=== PATIENT | male | born 1960 | race Hispanic/Latino ===

== ENCOUNTER 2020-04-05 22:08 | Observation (INO) | payer MEDICARE, OTHER ==
[2020-04-05] MEDS ORDERED: Sodium Chloride 0.9% 1,000 ML IV ONE (22:37)
[2020-04-05] MEDS ORDERED: Sodium Chloride 0.9% 10 ML Syringe FLUSH PRN (22:37)
[2020-04-05] MEDS ORDERED: Sodium Chloride 0.9% 2.5 ML Syringe FLUSH PRN (22:37)
[2020-04-05] MEDS ORDERED: Morphine 4 MG/ML Syringe IVPUSH ONE (23:01)
[2020-04-05] MEDS ORDERED: HYDROmorphone 1 MG/ML Syringe IVPUSH ONE (23:11)
--- NOTE | 2020-04-05 23:17 | EDM.PDOC ---
ED HPI GENERAL MEDICAL PROBLEM - General Chief Complaint: Abdominal Pain Stated Complaint: STOMACHE PAIN Time Seen by Provider: 04/05/20 22:28 Source of Information: Reports: Patient - History of Present Illness INITIAL COMMENTS - FREE TEXT/NARRATIVE: History of present illness: 59-year-old male presenting with right-sided abdominal pain, ongoing since yesterday. Somewhat chronic nature to this pain but worsened in the last couple days. The patient does have significant previous/underlying medical abdominal issues including liver cirrhosis for which he is scheduled tomorrow to have some kind of a liver stent done at [facility], as well as colon cancer post colectomy with colostomy in place. He does report that over the last few weeks he has had an increase in abdominal girth and distention and he has seen his doctors at [place] and they told him it was not anything to be concerned about. He has never had paracentesis or any other abdominal drainage. He reports normal stool output from the ostomy but does have some intestine herniation through the ostomy. Review of systems: As per history of present illness and below otherwise all systems reviewed and negative. Past medical history: As per history of present illness and as reviewed below otherwise noncontributory. Diabetes, liver cirrhosis, colon cancer Surgical history: As per history of present illness and as reviewed below otherwise noncontributory. Colostomy, liver stent Social history: Occasional-smoker Family history: As per history of present illness and as reviewed below otherwise noncontributory. Physical exam: GEN: no acute distress, well appearing HEENT: Atraumatic, normocephalic, mucous membranes moist, Neck: supple. Lungs: No respiratory distress. Heart: RRR Abdomen: Soft, distended, colostomy present in right mid abdomen that has herniated intestinal tissue at the opening, easily reduced. No fluid wave or ascites palpable. Tenderness is located primarily around the ostomy site and right abdominal wall. No rigidity Back: nontender Extremities: Atraumatic. Neurovascularly intact. Neuro: Awake, alert, oriented. Appears slightly slow to answer questions, however patient reports that he is hard of hearing and is having difficulty hearing. He is ANO x3. Neuro Exam nonfocal. Skin: warm, dry, no lesions Psych: Normal mood and affect Diagnostics: Labs, CT Therapeutics: Zosyn, lactulose, Dilaudid MDM: Impression: Plan: Definitive disposition and diagnosis as appropriate pending reevaluation and review of above. Abdomen Pain Score (Numeric/FACES): 7 - Related Data Allergies Allergy/AdvReac Type Severity Reaction Status Date / Time No Known Allergies Allergy Verified 04/05/20 22:24 Home Meds: Home Meds . [No Known Home Meds] 04/05/20 [History] Past Medical History HEENT History: Reports: None Cardiovascular History: Reports: None Respiratory History: Reports: None Gastrointestinal History: Reports: Cirrhosis Genitourinary History: Reports: None Musculoskeletal History: Reports: None Neurological History: Reports: None Psychiatric History: Reports: Anxiety, Depression Endocrine/Metabolic History: Reports: Diabetes, Type II, Other (See Below) Other Endocrine/Metabolic History: Thyroid Problem Insulin Pump Model and Air Conditioning Coil Assembler: None Hematologic History: Reports: None Immunologic History: Reports: None Oncologic (Cancer) History: Reports: Colon Dermatologic History: Reports: None - Infectious Disease History Infectious Disease History: Reports: None - Past Surgical History Head Surgeries/Procedures: Reports: None GI Surgical History: Reports: Colostomy, Other (See Below) Other GI Surgeries/Procedures: Abdominal Surgery Male Surgical History: Reports: None Musculoskeletal Surgical History: Reports: None Social & Family History - Family History Family Medical History: Noncontributory - Tobacco Use Smoking Status *Q: Current Some Day Smoker Years of Tobacco use: 40 Packs/Tins Daily: 0.1 - Caffeine Use Caffeine Use: Reports: Coffee, Soda - Recreational Drug Use Recreational Drug Use: No ED ROS GENERAL - Review of Systems Review Of Systems: See Below (See HPI) ED EXAM, GI/ABD - Physical Exam Exam: See Below (See HPI) Course - Vital Signs Text/Narrative:: Abdominal pain, history of liver disease/cirrhosis and colon cancer. Tender to palpation primarily about the colostomy which does have herniation of intestinal contents though no strangulated hernia, easily reducible. Will check CT abdomen. Will also check ammonia. Ammonia level is elevated. Patient's CT scan shows ascites, thickening of the cecum and right colon, this is the location of the patient's pain. Suspect colitis. Abnormal portal vein, possible thrombosis versus chronic. Creatinine slightly elevated. LFTs slightly elevated. Patient given lactulose, pain control and Zosyn here. Symptoms are improved. Discussed recommendation with patient for admission. We did attempt to discuss this with the corporate attorney [place] for potential transfer, as the patient had procedure planned to there tomorrow and all of his specialists are located there, however they are full and on diversion and cannot accept transfers at this time. Therefore the patient will be admitted here and stabilized and will be able to follow-up with his surgeon there once stable for discharge. Last Recorded V/S: Last Vital Signs Temp 97.4 F 04/06/20 00:45 Pulse 59 L 04/06/20 02:30 Resp 18 04/06/20 02:30 BP 130/88 04/06/20 02:30 Pulse Ox 99 04/06/20 02:30 - Orders/Labs/Meds Orders: Active Orders 24 hr Category Date Time Status Patient Status [ADT] Routine ADT 04/06/20 02:13 Active Sodium Chloride 0.9% [Saline Flush] Med 04/05/20 22:37 Active 10 ml FLUSH ASDIRECTED PRN Sodium Chloride 0.9% [Saline Flush] Med 04/05/20 22:37 Active 2.5 ml FLUSH ASDIRECTED PRN Saline Lock Insert [OM.PC] Stat Oth 04/05/20 22:37 Ordered Medication Orders Sodium Chloride (Saline Flush) 10 ml FLUSH ASDIRECTED PRN PRN Reason: Keep Vein Open Sodium Chloride (Saline Flush) 2.5 ml FLUSH ASDIRECTED PRN PRN Reason: Keep Vein Open Labs: Laboratory Tests 04/05/20 04/05/20 04/05/20 Range/Units 22:41 22:41 22:41 WBC 5.55 (4.0-11.0) K/uL RBC 3.02 L (4.50-5.90) M/uL Hgb 7.9 L (13.0-17.0) g/dL Hct 25.1 L (38.0-50.0) % MCV 83.1 (80.0-98.0) fL MCH 26.2 L (27.0-32.0) pg MCHC 31.5 (31.0-37.0) g/dL RDW Std Deviation 55.5 (28.0-62.0) fl RDW Coeff of Jonah 18 H (11.0-15.0) % Plt Count 135 L (150-400) K/uL MPV 10.10 (7.40-12.00) fL Neut % (Auto) 65.0 (48.0-80.0) % Lymph % (Auto) 14.6 L (16.0-40.0) % Warren % (Auto) 13.7 (0.0-15.0) % Eos % (Auto) 5.4 (0.0-7.0) % Baso % (Auto) 1.3 (0.0-1.5) % Neut # (Auto) 3.6 (1.4-5.7) K/uL Lymph # (Auto) 0.8 (0.6-2.4) K/uL Warren # (Auto) 0.8 (0.0-0.8) K/uL Eos # (Auto) 0.3 (0.0-0.7) K/uL Baso # (Auto) 0.1 (0.0-0.1) K/uL Nucleated RBC % 0.0 /100WBC Nucleated RBCs # 0 K/uL Sodium 143 (136-148) mmol/L Potassium 3.1 L (3.5-5.1) mmol/L Chloride 111 H (98-107) mmol/L Carbon Dioxide 21.6 (21.0-32.0) mmol/L BUN 9 (7.0-18.0) mg/dL Creatinine 1.4 H (0.8-1.3) mg/dL Est Cr Clr Drug Dosing 60.51 mL/min Estimated GFR (MDRD) 51.9 ml/min Glucose 114 H (74-106) mg/dL Calcium 7.7 L (8.5-10.1) mg/dL Total Bilirubin 1.1 H (0.2-1.0) mg/dL AST 65 H (15-37) IU/L ALT 31 (14-63) IU/L Alkaline Phosphatase 175 H (46-116) U/L Ammonia 97 H (19-54) ug/dL Total Protein 6.5 (6.4-8.2) g/dL Albumin 2.2 L (3.4-5.0) g/dL Globulin 4.3 H (2.6-4.0) g/dL Albumin/Globulin Ratio 0.5 L (0.9-1.6) Urine Color Urine Appearance Urine pH (5.0-8.0) Ur Specific [place] (1.001-1.035) Urine Protein (NEGATIVE) mg/dL Urine Glucose (UA) (NEGATIVE) mg/dL Urine Ketones (NEGATIVE) mg/dL Urine Occult Blood (NEGATIVE) Urine Nitrite (NEGATIVE) Urine Bilirubin (NEGATIVE) Urine Urobilinogen (<2.0) EU/dL Ur Leukocyte Esterase (NEGATIVE) SARS Virus RNA (PCR) (NEGATIVE) 04/06/20 04/06/20 Range/Units 00:00 02:12 WBC (4.0-11.0) K/uL RBC (4.50-5.90) M/uL Hgb (13.0-17.0) g/dL Hct (38.0-50.0) % MCV (80.0-98.0) fL MCH (27.0-32.0) pg MCHC (31.0-37.0) g/dL RDW Std Deviation (28.0-62.0) fl RDW Coeff of Jonah (11.0-15.0) % Plt Count (150-400) K/uL MPV (7.40-12.00) fL Neut % (Auto) (48.0-80.0) % Lymph % (Auto) (16.0-40.0) % Warren % (Auto) (0.0-15.0) % Eos % (Auto) (0.0-7.0) % Baso % (Auto) (0.0-1.5) % Neut # (Auto) (1.4-5.7) K/uL Lymph # (Auto) (0.6-2.4) K/uL Warren # (Auto) (0.0-0.8) K/uL Eos # (Auto) (0.0-0.7) K/uL Baso # (Auto) (0.0-0.1) K/uL Nucleated RBC % /100WBC Nucleated RBCs # K/uL Sodium (136-148) mmol/L Potassium (3.5-5.1) mmol/L Chloride (98-107) mmol/L Carbon Dioxide (21.0-32.0) mmol/L BUN (7.0-18.0) mg/dL Creatinine (0.8-1.3) mg/dL Est Cr Clr Drug Dosing mL/min Estimated GFR (MDRD) ml/min Glucose (74-106) mg/dL Calcium (8.5-10.1) mg/dL Total Bilirubin (0.2-1.0) mg/dL AST (15-37) IU/L ALT (14-63) IU/L Alkaline Phosphatase (46-116) U/L Ammonia (19-54) ug/dL Total Protein (6.4-8.2) g/dL Albumin (3.4-5.0) g/dL Globulin (2.6-4.0) g/dL Albumin/Globulin Ratio (0.9-1.6) Urine Color YELLOW Urine Appearance CLEAR Urine pH 7.0 (5.0-8.0) Ur Specific [place] 1.010 (1.001-1.035) Urine Protein NEGATIVE (NEGATIVE) mg/dL Urine Glucose (UA) NEGATIVE (NEGATIVE) mg/dL Urine Ketones NEGATIVE (NEGATIVE) mg/dL Urine Occult Blood NEGATIVE (NEGATIVE) Urine Nitrite NEGATIVE (NEGATIVE) Urine Bilirubin NEGATIVE (NEGATIVE) Urine Urobilinogen 1.0 (<2.0) EU/dL Ur Leukocyte Esterase NEGATIVE (NEGATIVE) SARS Virus RNA (PCR) NEGATIVE (NEGATIVE) Meds: Medications Generic Name Dose Route Start Last Admin Trade Name Freq PRN Reason Stop Dose Admin Sodium Chloride 10 ml 04/05/20 22:37 Saline Flush FLUSH ASDIRECTED PRN Keep Vein Open Sodium Chloride 2.5 ml 04/05/20 22:37 Saline Flush FLUSH ASDIRECTED PRN Keep Vein Open Discontinued Medications Generic Name Dose Route Start Last Admin Trade Name Freq PRN Reason Stop Dose Admin Hydromorphone HCl 0.5 mg 04/05/20 23:11 04/05/20 23:31 Dilaudid IVPUSH 04/05/20 23:12 0.5 mg ONETIME ONE Administration Sodium Chloride 1,000 mls @ 999 mls/hr 04/05/20 22:37 04/05/20 22:43 Normal Saline IV 04/05/20 23:37 999 mls/hr .Bolus ONE Administration Piperacillin Sod/Tazobactam 50 mls @ 100 mls/hr 04/06/20 01:20 04/06/20 01:30 Sod 3.375 gm/ Sodium Chloride IV 04/06/20 01:49 100 mls/hr ONETIME ONE Administration Iopamidol 75 ml 04/06/20 01:36 04/06/20 01:37 Isovue-370 (76%) IVPUSH 04/06/20 01:37 75 ml ONETIME STA Administration Lactulose 10 gm 04/06/20 01:20 04/06/20 01:29 Chronulac PO 04/06/20 01:21 10 gm ONETIME ONE Administration Morphine Sulfate 4 mg 04/05/20 23:01 04/05/20 23:45 Morphine IVPUSH 04/05/20 23:02 Not Given ONETIME ONE - Re-Assessments/Exams Free Text/Narrative Re-Assessment/Exam: 04/06/20 02:01 Discussed results and recommendation for admission to the hospital with the patient. He agrees with this plan. 04/06/20 02:[address] Chaves, who accepts the admission, requests place patient under observation Departure - Departure Time of Disposition: 02:01 Disposition: Refer to Observation Clinical Impression: Colitis, Hepatic encephalopathy Abdominal pain Qualifiers: Abdominal location: right upper quadrant Qualified Code(s): R10.11 - Right upper quadrant pain Ascites Qualifiers: Ascites type: due to alcoholic cirrhosis Qualified Code(s): K70.31 - Alcoholic cirrhosis of liver with ascites - Discharge Information Sepsis Event Note (ED) - Evaluation Sepsis Screening Result: No Definite Risk - Focused Exam Vital Signs: Vital Signs Temp Pulse Resp BP Pulse Ox 04/06/20 02:30 59 L 18 130/88 99 04/06/20 00:45 97.4 F 72 18 127/88 98 04/05/20 23:35 78 18 127/79 99 04/05/20 22:26 97.5 F 72 20 128/86 100 - My Orders Last 24 Hours: My Active Orders 04/05/20 22:37 Sodium Chloride 0.9% [Saline Flush] 10 ml FLUSH ASDIRECTED PRN Sodium Chloride 0.9% [Saline Flush] 2.5 ml FLUSH ASDIRECTED PRN Saline Lock Insert [OM.PC] Stat 04/06/20 02:13 Patient Status [ADT] Routine - Assessment/Plan Last 24 Hours: My Active Orders 04/05/20 22:37 Sodium Chloride 0.9% [Saline Flush] 10 ml FLUSH ASDIRECTED PRN Sodium Chloride 0.9% [Saline Flush] 2.5 ml FLUSH ASDIRECTED PRN Saline Lock Insert [OM.PC] Stat 04/06/20 02:13 Patient Status [ADT] Routine
[2020-04-05 23:26] LABS: CARBON DIOXIDE,CO2 21.6 mmol/L (21.0-32.0); POTASSIUM,K 3.1 mmol/L (3.5-5.1)
--- NOTE | 2020-04-06 01:04 | CT ---
INDICATION: Right sided abdominal pain, end-stage renal disease, colon cancer, ostomy TECHNIQUE: CT Abdomen and pelvis with i.v. contrast. Coronal and sagittal reformats were obtained. CONTRAST: 75 mL Isovue 370 COMPARISON: None FINDINGS: Lower chest: Unremarkable. Liver: The liver has a nodular capsular contour, consistent with micronodular cirrhosis. No focal liver lesions are identified. Spleen: Unremarkable. Pancreas: Unremarkable. Gallbladder: Previous cholecystectomy noted without significant intra- or extrahepatic biliary ductal dilatation seen. Kidney: There are 2 punctate 1 mm stones present in the lower pole of the left kidney. Adrenal: Unremarkable. Bowel: Moderate wall thickening of the cecum and right colon noted. The patient is status post a subtotal colectomy with a right flank colostomy. Numerous embolization coils are seen along the middle colonic veins. There is a patulous small bowel anastomosis present in the anterior mid abdomen. Anastomotic staple line is present at the rectosigmoid junction. The appendix is not identified. Vascular: There is poor enhancement the right posterior segment portal vein which may be due to thrombosis. Lymph: Unremarkable. Peritoneum: Unremarkable. No pneumoperitoneum is seen. A large amount of abdominal ascites is present. Pelvis: There is a right inguinal hernia present containing ascitic fluid. Soft tissue: A patent TIPS shunt is present. Bone: Unremarkable for age. IMPRESSIONS: 1. There is poor enhancement the right posterior segment portal vein which may be due to thrombosis. The chronicity of this finding is uncertain. 2. A large amount of abdominal ascites is present. 3. There is a right inguinal hernia present containing ascitic fluid. 4. Moderate wall thickening of the cecum and right colon noted. Given the presence of cirrhosis, this may be due to altered hemodynamics associated with portal hypertension. Clinical correlation recommended to exclude infectious colitis or inflammatory bowel disease. Dictated by Pierre Page MD @ 04/06/2020 1:00:56 AM Please note that all CT scans at this facility use dose modulation, iterative reconstruction, and/or weight-based dosing when appropriate to reduce radiation dose to as low as reasonably achievable. Dictated by: Pierre Page MD @ 04/06/2020 01:02:24 (Electronically Signed)
[2020-04-06] MEDS ORDERED: Piperacillin/Tazobactam 3.375 GM in Sodium Chloride 0.9% 50 ML IV ONE (01:20)
[2020-04-06] MEDS ORDERED: Lactulose Soln 10 GM/15 ML 15 ML UD Cup PO ONE (01:20)
[2020-04-06] MEDS ORDERED: Iopamidol 755 Mg/ML 100 ML Bottle IVPUSH STA (01:36)
[2020-04-06] MEDS ORDERED: Ondansetron 4 MG/2 ML SDV IVPUSH PRN (04:04)
[2020-04-06] MEDS ORDERED: HYDROmorphone 1 MG/ML Syringe IVPUSH PRN (04:05)
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
[2020-04-06] MEDS ORDERED: Piperacillin/Tazobactam 3.375 GM in Sodium Chloride 0.9% 50 ML IV SCH (08:00)
[2020-04-06] MEDS ORDERED: Potassium Chloride 20 MEQ Tab.ER PO ONE (09:58)
== END 2020-04-06 13:10 | disposition home or self-care (01) ==
LOC: MW.ED 22:08 → MW.MS 04-06 02:36
PROVIDERS: ADMIT Internal Medicine; ATTEND Internal Medicine
DX: K52.9 Noninfective gastroenteritis and colitis, unspecified (principal); K70.31 Alcoholic cirrhosis of liver with ascites; F10.188 Alcohol abuse with other alcohol-induced disorder; F17.210 Nicotine dependence, cigarettes, uncomplicated; F41.9 Anxiety disorder, unspecified; F32.9 Major depressive disorder, single episode, unspecified; E11.9 Type 2 diabetes mellitus without complications; E87.6 Hypokalemia; R74.0 Nonspecific elevation of levels of transaminase and lactic acid dehydrogenase [LDH]; E83.42 Hypomagnesemia; Z20.828 Contact with and (suspected) exposure to other viral communicable diseases; Z93.3 Colostomy status
CPT/HCPCS: 36415; 74177; 80053; 81003; 82140; 82962; 85025; 96361; 96365; 96375; 96376; 99285; A9270; G0378; J1170; J2543; J7030; J7050; Q9967; U0002; 99234; 99283

== ENCOUNTER 2020-04-14 17:13 | Emergency (ER) | payer MEDICARE, OTHER ==
[2020-04-14] MEDS ORDERED: Sodium Chloride 0.9% 1,000 ML IV ONE (17:52)
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
[2020-04-14] MEDS ORDERED: Morphine 2 MG/ML SYRINGE IVPUSH ONE (18:14)
[2020-04-14 18:39] LABS: BLOOD UREA NITROGEN,BUN 7 mg/dL (7.0-18.0); CARBON DIOXIDE,CO2 20.8 mmol/L (21.0-32.0); CHLORIDE,CL 109 mmol/L (98-107); GLUCOSE RANDOM 123 mg/dL (74-106); LIPASE 206 U/L (73-393); SODIUM,NA 140 mmol/L (136-148)
--- NOTE | 2020-04-14 18:45 | CR ---
Chest: Portable view of the chest was obtained. Comparison: No prior chest imaging is available. Heart size and mediastinum are normal. Infusion port entering from the right side. Lungs are clear with no acute parenchymal change. Old healed left clavicle fracture is noted. Impression: 1. Nothing acute is appreciated on frontal chest x-ray. Diagnostic code #1 Study was dictated in MDT
[2020-04-14] MEDS ORDERED: Iopamidol 755 Mg/ML 100 ML Bottle IVPUSH STA (19:16)
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
[2020-04-14] MEDS ORDERED: Potassium Chloride 10% 20 MEQ/15 ML Soln 30 ML UD Cup PO ONE (20:39)
[2020-04-14] MEDS ORDERED: Magnesium Oxide 400 MG Tab PO ONE (20:40)
--- NOTE | 2020-04-14 20:43 | PCM.SN.2 ---
- Free Text/Narrative Note: The patient was presented to me by the mid-level provider, who sees patients independently as a licensed independent practitioner by [facility] and [facility] law. Up until the time that I was consulted and assumed supervision, the mid-level provider had been solely and independently caring for this patient and they were responsible for all aspects of care including performing the history and physical, formulating medical decision making, ordering medications, and ordering and evaluating testing. I have personally and independently seen and evaluated the patient at bedside and, if available, have spoken with the with the family. I agree with the history, physical, medical decision making, and plan of treatment as documented by the mid-level provider. I have performed the medical decision making for this patient, including assessing the results of all diagnostic testing and I have instructed the mid-level provider to document the results and carry through with the treatment plan that I deemed appropriate. If needed, any other comments, a focused physical examination, or my own medical decision making are documented below. In brief, this is a 59-year-old male with a past medical history of alcoholic cirrhosis, status post colostomy after bowel resection for colon cancer in remission, hepatic encephalopathy on lactulose presenting with abdominal pain. Recent admission for colitis requiring IV antibiotics, now currently on p.o. ciprofloxacin and metronidazole. Presenting back to the ER this evening for worsening of prior right lower quadrant abdominal pain to his right lower quadrant, not specifically around the colostomy site though. Initial vital signs showed tachycardia and tachypnea - normalized on repeat checks. Labs show stable normocytic anemia, no leukocytosis, thrombocytopenia. Normal INR. Chemistry panel shows hypokalemia, mildly low CO2, stable creatinine elevation, mild total bilirubin elevation compared to normal. Negative troponin, normal ammonia. Normal lipase. CT abdomen/pelvis with contrast shows cirrhotic liver with large volume ascites and splenomegaly, patent portosystemic shunt, stable surgical changes, no acute findings. Lactate normal. Alkaline phosphatase elevated at 150. Lipase within normal limits. Urinalysis shows no blood or evidence of infection. Given p.o. potassium chloride along with magnesium oxide. Pain improved after analgesic medications. Patient underwent therapeutic paracentesis after obtaining informed written consent. Ascitic fluid shows 75 white blood cells, 34,000 red blood cells, cloudy appearance. Glucose 108, albumin 0.9, protein 2.3. Not consistent with SBP. Did note large red blood cells in the peritoneal fluid analysis, but the procedure was performed under static ultrasound guidance with a very short catheter. Low suspicion for intra-abdominal hollow organ or vascular injury at this point. I did rehabilitation counsellor patient that if he were to feel lightheaded or exhibit dizziness or generalized weakness, he should come back to the ER immediately. At this point there is no evidence of an intra-abdominal surgical emergency or emergency medical condition that would warrant admission to the hospital. No evidence of SBP. Patient is stable discharge home. He has a follow-up appointment scheduled for 13 days from now, I encouraged him to move that up to the next 3 to 5 days. He will be prescribed oral potassium for potassium repletion at discharge. I counseled him to continue his prescribed oral ciprofloxacin antibiotic and continue the lactulose as directed. Otherwise he is stable to discharge home with close outpatient primary care follow-up in the next few days. Plan: Patient is stable to discharge home with outpatient primary care clinic follow-up. Strict emergency department return precautions were provided, patient indicated understanding. All questions were answered prior to departure. Discharged in good condition. PROCEDURE: ULTRASOUND GUIDED PARACENTESIS Indication: Ascites, abdominal pain. Location: left upper quadrant (colostomy is located in typical right lower quadrant) Anesthesia: Local, 1% Lidocaine Technique: modified sterile, standard Details: static ultrasound guided, catheter over needle Complications: None Color: blood-tinged, cloudy Volume Removed: 3,000 mL Complications: none apparent, tolerated well.
== END 2020-04-15 01:12 | disposition home or self-care (01) ==
LOC: MW.ED 17:13
DX: K70.31 Alcoholic cirrhosis of liver with ascites (principal); E87.6 Hypokalemia; I10 Essential (primary) hypertension; E11.9 Type 2 diabetes mellitus without complications; Z93.3 Colostomy status
CPT/HCPCS: 36415; 49083; 71045; 74177; 80053; 81003; 82140; 82945; 83605; 83690; 84157; 84484; 85025; 85610; 87040; 87070; 87205; 89050; 93005; 96361; 96374; 99284; A9270; J2270; J7030; Q9967; 99283; J2001

== ENCOUNTER 2022-07-09 11:17 | Emergency (ER) | payer MEDICARE | END 2022-07-09 14:23 | disposition home or self-care (01) | LOC: MW.ED 11:17 | DX: K94.23 Gastrostomy malfunction (principal); I10 Essential (primary) hypertension; E11.9 Type 2 diabetes mellitus without complications | CPT/HCPCS: 99282 ==

== ENCOUNTER 2022-08-31 13:36 | Inpatient (IN) | payer MEDICARE ==
[2022-08-31] MEDS ORDERED: Sodium Chloride 0.9% 1,000 ML IV ONE (14:35)
[2022-08-31] MEDS ORDERED: Sodium Chloride 0.9% 10 ML Syringe FLUSH PRN (14:35)
[2022-08-31] MEDS ORDERED: Ondansetron 4 MG/2 ML SDV IVPUSH ONE (14:35)
[2022-08-31] MEDS ORDERED: Sodium Chloride 0.9% 2.5 ML Syringe FLUSH PRN (14:35)
[2022-08-31] MEDS ORDERED: Lactulose Soln 10 GM/15 ML 15 ML UD Cup GTUBE ONE (14:38)
[2022-08-31 15:31] LABS: BLOOD UREA NITROGEN,BUN 9 mg/dL (7.0-18.0); CARBON DIOXIDE,CO2 20.9 mmol/L (21.0-32.0); CHLORIDE,CL 113 mmol/L (98-107); GLUCOSE RANDOM 122 mg/dL (74-106); LIPASE 245 U/L (73-393); POTASSIUM,K 3.7 mmol/L (3.5-5.1); SODIUM,NA 145 mmol/L (136-148)
[2022-08-31 15:33] LABS: ESTIMATED GFR 62 mL/min (>60)
[2022-08-31] MEDS ORDERED: Haloperidol Lactate 5 MG/ML SDV IM ONE (17:01)
[2022-08-31] MEDS ORDERED: Acetaminophen 325 MG Tab PO PRN (18:07)
[2022-08-31] MEDS ORDERED: Polyethylene Glycol 3350 Powder 17 GM Packet PO PRN (18:07)
[2022-08-31] MEDS ORDERED: Albuterol/Ipratropium 3.0-0.5 MG/3 ML Neb Soln NEB PRN (18:07)
[2022-08-31] MEDS ORDERED: LORazepam 2 MG/ML SDV IVPUSH PRN (18:11)
[2022-08-31] MEDS ORDERED: Thiamine 100 MG in Sodium Chloride 0.9% 100 ML IV SCH (18:15)
[2022-08-31] MEDS: Lactulose Soln 10 GM/15 ML 15 ML UD Cup GTUBE SCH ×3 (20:19→23:22)
[2022-08-31] MEDS: Folic Acid 1 MG/0.2 ML UD Syringe IV SCH (20:21)
[2022-08-31] MEDS ORDERED: Thiamine 200 MG/2 ML MDV ONE (20:30)
[2022-08-31] MEDS: Sodium Chloride 0.9% 1,000 ML IV SCH (20:31)
[2022-09-01] MEDS: Lactulose Soln 10 GM/15 ML 15 ML UD Cup GTUBE SCH ×5 (00:18→23:24)
[2022-09-01] MEDS: Sodium Chloride 0.9% 1,000 ML IV SCH (04:43)
[2022-09-01] MEDS ORDERED: Lactulose Soln 10 GM/15 ML 15 ML UD Cup NGTUBE SCH (06:00)
[2022-09-01 06:48] LABS: CARBON DIOXIDE,CO2 18.2 mmol/L (21.0-32.0); POTASSIUM,K 3.5 mmol/L (3.5-5.1)
[2022-09-01] MEDS: Lactated Ringers 1,000 ML IV SCH ×3 (07:39→23:21)
[2022-09-01] MEDS: Folic Acid 1 MG/0.2 ML UD Syringe IV SCH (08:03)
[2022-09-01] MEDS: Thiamine 200 MG/2 ML MDV IVPUSH SCH (08:04)
[2022-09-01] MEDS: Enoxaparin 40 MG/0.4 ML Syringe SUBCUT SCH (08:29)
[2022-09-01] MEDS ORDERED: Rifaximin 550 MG Tab PO SCH (10:45)
[2022-09-01] MEDS: Magnesium Oxide 400 MG Tab PO SCH ×2 (11:42→20:12)
[2022-09-01] MEDS: DULoxetine 60 MG Cap PO SCH (11:42)
[2022-09-01] MEDS: Rifaximin 550 MG Tab PO SCH ×2 (11:42→20:13)
[2022-09-01] MEDS: Ferrous Sulfate 325 MG Tab PO SCH (11:43)
[2022-09-01] MEDS: Pantoprazole 40 MG Tab.CR PO SCH (11:43)
[2022-09-01] MEDS ORDERED: Lactulose Soln 10 GM/15 ML 15 ML UD Cup PO SCH (12:00)
[2022-09-01] MEDS: risperiDONE 1 MG Tab PO SCH ×2 (13:48→21:10)
[2022-09-01] MEDS ORDERED: 50% Dextrose in Water 50 ML Syringe IVPUSH PRN (18:13)
[2022-09-01] MEDS ORDERED: Glucagon,Human Recombinant 1 MG Vial IM PRN (18:13)
[2022-09-02 06:02] LABS: CARBON DIOXIDE,CO2 20.7 mmol/L (21.0-32.0); POTASSIUM,K 3.5 mmol/L (3.5-5.1)
[2022-09-02] MEDS: Lactulose Soln 10 GM/15 ML 15 ML UD Cup GTUBE SCH ×4 (06:21→23:52)
[2022-09-02] MEDS: risperiDONE 1 MG Tab PO SCH ×3 (06:21→21:00)
[2022-09-02] MEDS: Levothyroxine 150 MCG Tab PO SCH ×2 (06:23→06:35)
[2022-09-02] MEDS: Insulin Aspart 100 Units/ML 3 ML Pen SUBCUT SCH ×3 (06:35→18:52)
[2022-09-02] MEDS: Lactated Ringers 1,000 ML IV SCH (07:17)
[2022-09-02] MEDS: Ferrous Sulfate 325 MG Tab PO SCH (09:35)
[2022-09-02] MEDS: Magnesium Oxide 400 MG Tab PO SCH ×2 (09:35→20:58)
[2022-09-02] MEDS: DULoxetine 60 MG Cap PO SCH (09:35)
[2022-09-02] MEDS: Pantoprazole 40 MG Tab.CR PO SCH (09:35)
[2022-09-02] MEDS: Thiamine 200 MG/2 ML MDV IVPUSH SCH (09:42)
[2022-09-02] MEDS: Folic Acid 1 MG/0.2 ML UD Syringe IV SCH (09:43)
[2022-09-02] MEDS: Rifaximin 550 MG Tab PO SCH ×2 (09:49→20:59)
[2022-09-02] MEDS: Enoxaparin 40 MG/0.4 ML Syringe SUBCUT SCH (10:08)
[2022-09-03 06:23] LABS: CARBON DIOXIDE,CO2 21.2 mmol/L (21.0-32.0); POTASSIUM,K 3.5 mmol/L (3.5-5.1)
[2022-09-03] MEDS: Lactulose Soln 10 GM/15 ML 15 ML UD Cup GTUBE SCH (06:28)
[2022-09-03] MEDS: risperiDONE 1 MG Tab PO SCH ×3 (06:28→21:01)
[2022-09-03] MEDS: Levothyroxine 150 MCG Tab PO SCH ×2 (06:28→06:33)
[2022-09-03] MEDS ORDERED: Magnesium Oxide 400 MG Tab PO ONE (07:14)
[2022-09-03] MEDS: Insulin Aspart 100 Units/ML 3 ML Pen SUBCUT SCH ×3 (07:34→17:10)
[2022-09-03] MEDS: Magnesium Oxide 400 MG Tab PO SCH ×2 (09:14→21:00)
[2022-09-03] MEDS: Rifaximin 550 MG Tab PO SCH ×2 (09:15→21:01)
[2022-09-03] MEDS: Pantoprazole 40 MG Tab.CR PO SCH (09:15)
[2022-09-03] MEDS: DULoxetine 60 MG Cap PO SCH (09:15)
[2022-09-03] MEDS: Ferrous Sulfate 325 MG Tab PO SCH (09:15)
[2022-09-03] MEDS: Thiamine 200 MG/2 ML MDV IVPUSH SCH (09:30)
[2022-09-03] MEDS: Folic Acid 1 MG/0.2 ML UD Syringe IV SCH (10:52)
[2022-09-03] MEDS: Lactulose Soln 10 GM/15 ML 15 ML UD Cup PO SCH ×3 (11:59→23:05)
[2022-09-03] MEDS: Enoxaparin 40 MG/0.4 ML Syringe SUBCUT SCH (12:18)
[2022-09-04] MEDS: risperiDONE 1 MG Tab PO SCH ×2 (06:05→14:05)
[2022-09-04] MEDS: Levothyroxine 150 MCG Tab PO SCH ×2 (06:05→06:33)
[2022-09-04] MEDS: Lactulose Soln 10 GM/15 ML 15 ML UD Cup PO SCH ×2 (06:05→11:43)
[2022-09-04 06:16] LABS: POTASSIUM,K 3.7 mmol/L (3.5-5.1)
[2022-09-04] MEDS: Insulin Aspart 100 Units/ML 3 ML Pen SUBCUT SCH ×2 (06:32→11:42)
[2022-09-04] MEDS: DULoxetine 60 MG Cap PO SCH (08:45)
[2022-09-04] MEDS: Ferrous Sulfate 325 MG Tab PO SCH (08:45)
[2022-09-04] MEDS: Pantoprazole 40 MG Tab.CR PO SCH (08:46)
[2022-09-04] MEDS: Magnesium Oxide 400 MG Tab PO SCH (08:46)
[2022-09-04] MEDS: Rifaximin 550 MG Tab PO SCH (08:47)
[2022-09-04] MEDS: Folic Acid 1 MG/0.2 ML UD Syringe IV SCH (10:06)
[2022-09-04] MEDS: Thiamine 200 MG/2 ML MDV IVPUSH SCH (10:06)
== END 2022-09-04 15:50 | disposition home or self-care (01) | DRG 443 ==
LOC: MW.ED 13:36 → MW.MS 17:36 → UNDOADMIN 18:21 → MW.MS 18:21 → MW.ICU 09-01 01:16 → MW.MS 09-01 20:53
PROVIDERS: ADMIT Internal Medicine; ATTEND Internal Medicine
DX: K76.82 Hepatic encephalopathy (principal); E86.0 Dehydration; E03.9 Hypothyroidism, unspecified; Z91.199 Patient's noncompliance with other medical treatment and regimen due to unspecified reason; F41.9 Anxiety disorder, unspecified; F32.A Depression, unspecified; F17.200 Nicotine dependence, unspecified, uncomplicated; F10.90 Alcohol use, unspecified, uncomplicated; K70.30 Alcoholic cirrhosis of liver without ascites; Z20.822 Contact with and (suspected) exposure to COVID-19; N30.90 Cystitis, unspecified without hematuria; N32.0 Bladder-neck obstruction; K43.5 Parastomal hernia without obstruction or gangrene; N43.3 Hydrocele, unspecified; E11.9 Type 2 diabetes mellitus without complications; I10 Essential (primary) hypertension; Z87.19 Personal history of other diseases of the digestive system; Z85.038 Personal history of other malignant neoplasm of large intestine; Z43.3 Encounter for attention to colostomy; Z91.14 Patient's other noncompliance with medication regimen; Z79.890 Hormone replacement therapy; E07.9 Disorder of thyroid, unspecified; F17.210 Nicotine dependence, cigarettes, uncomplicated; Z93.3 Colostomy status; Z79.899 Other long term (current) drug therapy
CPT/HCPCS: 36415; 36600; 51702; 70450; 70450-26; 71045; 71045-26; 74018; 74018-26; 74176; 74176-26; 80053; 80305-QW; 80307; 81003; 82140; 82803; 82947; 83690; 83735; 84100; 85025; 85610; 85730; 93005; 97162-GP; 97530-GP; A9270-GY; J1630; J1650; J1815-GY; J2060; J2405; J3411; J3490; J7030; J7120; U0002

== ENCOUNTER 2022-09-11 09:13 | Observation (INO) | payer MEDICARE ==
[2022-09-11] MEDS ORDERED: Sodium Chloride 0.9% 2.5 ML Syringe FLUSH PRN (09:14)
[2022-09-11] MEDS ORDERED: Sodium Chloride 0.9% 10 ML Syringe FLUSH PRN (09:14)
[2022-09-11 09:41] LABS: BLOOD UREA NITROGEN,BUN 11 mg/dL (7.0-18.0); CARBON DIOXIDE,CO2 20.8 mmol/L (21.0-32.0); CHLORIDE,CL 111 mmol/L (98-107); GLUCOSE RANDOM 136 mg/dL (74-106); POTASSIUM,K 3.8 mmol/L (3.5-5.1); SODIUM,NA 143 mmol/L (136-148)
[2022-09-11 09:42] LABS: ESTIMATED GFR 57 mL/min (>60)
[2022-09-11] MEDS ORDERED: LORazepam 2 MG/ML SDV IVPUSH ONE (10:05)
[2022-09-11] MEDS ORDERED: LORazepam 2 MG/ML SDV ONE (10:07)
[2022-09-11] MEDS ORDERED: Haloperidol Lactate 5 MG/ML SDV IM ONE (10:14)
[2022-09-11] MEDS ORDERED: Iopamidol 755 MG/ML 500 ML Multipack Bottle IVPUSH STA (10:38)
[2022-09-11] MEDS ORDERED: Lactulose Soln 10 GM/15 ML 15 ML UD Cup PO ONE (11:45)
[2022-09-11] MEDS ORDERED: Ondansetron 4 MG/2 ML SDV IVPUSH PRN (13:51)
[2022-09-11] MEDS ORDERED: LORazepam 2 MG/ML SDV IVPUSH PRN (14:01)
[2022-09-11] MEDS ORDERED: Thiamine 100 MG in Sodium Chloride 0.9% 100 ML IV SCH (14:15)
[2022-09-11] MEDS: Lactulose Soln 10 GM/15 ML 15 ML UD Cup PO SCH ×5 (14:38→22:37)
[2022-09-11] MEDS: Sodium Chloride 0.9% 1,000 ML IV SCH ×2 (15:48→23:17)
[2022-09-11] MEDS: Folic Acid 1 MG/0.2 ML UD Syringe IV SCH (15:49)
[2022-09-11] MEDS: Thiamine 200 MG/2 ML MDV IVPUSH SCH (16:40)
[2022-09-12] MEDS: Lactulose Soln 10 GM/15 ML 15 ML UD Cup PO SCH ×3 (04:21→16:54)
[2022-09-12 06:20] LABS: BLOOD UREA NITROGEN,BUN 11 mg/dL (7.0-18.0); CARBON DIOXIDE,CO2 17.1 mmol/L (21.0-32.0); GLUCOSE RANDOM 108 mg/dL (74-106); POTASSIUM,K 3.3 mmol/L (3.5-5.1)
[2022-09-12 06:25] LABS: ESTIMATED GFR 62 mL/min (>60)
[2022-09-12 06:33] LABS: CHLORIDE,CL 121 mmol/L (98-107); SODIUM,NA 150 mmol/L (136-148)
[2022-09-12] MEDS ORDERED: cefTRIAXone 1 GM in Sodium Chloride 0.9% 50 ML IV SCH (07:15)
[2022-09-12] MEDS: Folic Acid 1 MG/0.2 ML UD Syringe IV SCH (08:25)
[2022-09-12] MEDS: Potassium Chloride 100 ML IV SCH ×2 (08:33→11:12)
[2022-09-12] MEDS: Thiamine 200 MG/2 ML MDV IVPUSH SCH (08:34)
[2022-09-12] MEDS ORDERED: Lactated Ringers 1,000 ML IV SCH (09:15)
== END 2022-09-12 17:40 | disposition home or self-care (01) ==
LOC: MW.ED 09:13 → MW.MS 11:45 → INTOOBSV 11:45 → MW.MS 13:57
PROVIDERS: ADMIT Internal Medicine; ATTEND Internal Medicine
DX: K72.90 Hepatic failure, unspecified without coma (principal); R74.01 Elevation of levels of liver transaminase levels; E11.9 Type 2 diabetes mellitus without complications; K76.82 Hepatic encephalopathy; F41.9 Anxiety disorder, unspecified; F32.A Depression, unspecified; E07.9 Disorder of thyroid, unspecified; I10 Essential (primary) hypertension; N13.30 Unspecified hydronephrosis; M47.816 Spondylosis without myelopathy or radiculopathy, lumbar region; M47.814 Spondylosis without myelopathy or radiculopathy, thoracic region; R16.1 Splenomegaly, not elsewhere classified; Z85.038 Personal history of other malignant neoplasm of large intestine; Z87.19 Personal history of other diseases of the digestive system; Z79.899 Other long term (current) drug therapy; Z79.890 Hormone replacement therapy; Z98.890 Other specified postprocedural states; Z20.822 Contact with and (suspected) exposure to COVID-19; W19.XXXA Unspecified fall, initial encounter
CPT/HCPCS: 36415; 43752; 51702; 70450; 70450-26; 71045; 71045-26; 71275; 71275-26; 72125; 72125-26; 72128-26; 72131-26; 72170; 72170-26; 74177; 74177-26; 80053; 80307; 81001; 82140; 82947; 83735; 84484; 85025; 85610; 85730; 87086; 87088; 87186; 93005; 93010; 96361; 96365; 96366; 96372; 96374; 96375; 96376; 99222; 99239; 99284; 99285-25; A9270-GY; G0378; J0696; J1630; J2060; J3411; J3480; J3490; J7030; J7050; J7120; Q9967; U0002

== ENCOUNTER 2022-10-11 14:31 | Inpatient (IN) | payer MEDICARE, MEDICAID ==
[2022-10-11] MEDS ORDERED: Lactulose Soln 10 GM/15 ML 15 ML UD Cup PO ONE ×2 (16:19→18:48)
[2022-10-11] MEDS ORDERED: Water For Injection, Sterile 20 ML SDV INJECT ONE (16:26)
[2022-10-11] MEDS ORDERED: Ziprasidone Mesylate 20 MG Vial IM ONE (16:26)
[2022-10-11] MEDS ORDERED: Haloperidol Lactate 5 MG/ML SDV IM ONE (16:27)
[2022-10-11] MEDS ORDERED: Lactated Ringers 1,000 ML IV SCH (16:30)
[2022-10-11] MEDS ORDERED: Rifaximin 550 MG Tab PO ONE (17:09)
[2022-10-11 18:00] LABS: ACETAMINOPHEN <2.0 ug/mL; BLOOD UREA NITROGEN,BUN 9 mg/dL (7.0-18.0); CARBON DIOXIDE,CO2 17.2 mmol/L (21.0-32.0); CHLORIDE,CL 113 mmol/L (98-107); ESTIMATED GFR 62 mL/min (>60); GLUCOSE RANDOM 114 mg/dL (74-106); LIPASE 189 U/L (73-393); POTASSIUM,K 3.5 mmol/L (3.5-5.1); SODIUM,NA 145 mmol/L (136-148)
[2022-10-11] MEDS ORDERED: Sodium Chloride 0.9% 10 ML Syringe FLUSH PRN (19:50)
[2022-10-11] MEDS ORDERED: Ondansetron 4 MG/2 ML SDV IVPUSH PRN (19:50)
[2022-10-11] MEDS ORDERED: Sodium Chloride 0.9% 20 ML SDV IV PRN (19:50)
[2022-10-11] MEDS ORDERED: Sodium Chloride 0.9% 2.5 ML Syringe FLUSH PRN (19:50)
[2022-10-11] MEDS ORDERED: Ondansetron 4 MG Tab.DIS PO PRN (19:50)
[2022-10-11] MEDS ORDERED: 50% Dextrose in Water 50 ML Syringe IVPUSH ONE (19:50)
[2022-10-11] MEDS ORDERED: LORazepam 2 MG/ML SDV IM PRN (19:50)
[2022-10-11] MEDS ORDERED: Promethazine 25 MG Tab PO PRN (19:50)
[2022-10-11] MEDS ORDERED: Acetaminophen 325 MG Tab PO PRN (19:50)
[2022-10-11 19:54] LABS: CORONAVIRUS COVID-19 NAA NEGATIVE (NEGATIVE); INFLUENZA A NAA NEGATIVE (NEGATIVE); INFLUENZA B NAA NEGATIVE (NEGATIVE); RESPIRATORY SYNCYTIAL VIR NAA NEGATIVE (NEGATIVE)
[2022-10-11] MEDS ORDERED: Sodium Chloride 0.9% 1,000 ML IV SCH (20:00)
[2022-10-11] MEDS ORDERED: Enoxaparin 40 MG/0.4 ML Syringe SUBCUT SCH (20:00)
[2022-10-11] MEDS ORDERED: Metoprolol Tartrate 25 MG Tab PO PRN (21:02)
[2022-10-11] MEDS ORDERED: cloNIDine 0.1 MG Tab PO PRN (21:02)
[2022-10-11] MEDS ORDERED: Haloperidol Lactate 5 MG/ML SDV IM PRN (21:02)
[2022-10-11] MEDS ORDERED: LORazepam 2 MG/ML SDV IV SCH (21:15)
[2022-10-11] MEDS ORDERED: LORazepam 1 MG Tab PO SCH (21:15)
[2022-10-11] MEDS: Magnesium Oxide 400 MG Tab PO SCH (22:45)
[2022-10-11] MEDS: Iron Polysaccharides Complex 150 MG Cap PO SCH (22:46)
[2022-10-11] MEDS: Rifaximin 550 MG Tab PO SCH (22:46)
[2022-10-11] MEDS: risperiDONE 1 MG Tab PO SCH (22:46)
[2022-10-12] MEDS: Lactulose Soln 10 GM/15 ML 15 ML UD Cup PO SCH ×5 (06:29→23:29)
[2022-10-12] MEDS: risperiDONE 1 MG Tab PO SCH ×3 (06:29→21:27)
[2022-10-12] MEDS: Levothyroxine 150 MCG Tab PO SCH (06:29)
[2022-10-12 07:16] LABS: CARBON DIOXIDE,CO2 19.9 mmol/L (21.0-32.0); POTASSIUM,K 3.3 mmol/L (3.5-5.1)
[2022-10-12] MEDS ORDERED: Pantoprazole 40 MG Tab.CR PO SCH (07:30)
[2022-10-12] MEDS: Dextrose 5%-0.45% NaCl 1,000 ML IV SCH ×2 (08:50→19:15)
[2022-10-12] MEDS ORDERED: Thiamine 100 MG Tab PO SCH (09:00)
[2022-10-12] MEDS: Iron Polysaccharides Complex 150 MG Cap PO SCH ×2 (09:33→21:27)
[2022-10-12] MEDS: DULoxetine 60 MG Cap PO SCH (09:33)
[2022-10-12] MEDS: Cholecalciferol (Vitamin D3) 25 MCG Tab PO SCH (09:33)
[2022-10-12] MEDS: Multivitamin Tab PO SCH (09:34)
[2022-10-12] MEDS: Magnesium Oxide 400 MG Tab PO SCH ×2 (09:34→21:27)
[2022-10-12] MEDS: Rifaximin 550 MG Tab PO SCH ×2 (10:12→21:27)
[2022-10-12] MEDS ORDERED: Thiamine 100 MG in Sodium Chloride 0.9% 100 ML IV SCH (10:45)
[2022-10-12] MEDS ORDERED: Folic Acid 50 MG/10 ML MDV IV SCH (10:45)
[2022-10-13] MEDS: Lactulose Soln 10 GM/15 ML 15 ML UD Cup PO SCH ×7 (05:45→21:48)
[2022-10-13] MEDS: Dextrose 5%-0.45% NaCl 1,000 ML IV SCH (05:46)
[2022-10-13] MEDS: risperiDONE 1 MG Tab PO SCH ×3 (05:47→21:49)
[2022-10-13] MEDS: Levothyroxine 150 MCG Tab PO SCH ×2 (05:55→06:38)
[2022-10-13] MEDS: Pantoprazole 40 MG in Sodium Chloride 0.9% 10 ML IVPUSH SCH ×2 (05:55→06:38)
[2022-10-13 06:11] LABS: CARBON DIOXIDE,CO2 19.4 mmol/L (21.0-32.0)
[2022-10-13] MEDS: Magnesium Oxide 400 MG Tab PO SCH ×2 (08:57→21:48)
[2022-10-13] MEDS: Cholecalciferol (Vitamin D3) 25 MCG Tab PO SCH (08:57)
[2022-10-13] MEDS: Iron Polysaccharides Complex 150 MG Cap PO SCH ×2 (08:58→21:49)
[2022-10-13] MEDS: DULoxetine 60 MG Cap PO SCH (08:58)
[2022-10-13] MEDS: Multivitamin Tab PO SCH (08:59)
[2022-10-13] MEDS: Thiamine 200 MG/2 ML MDV IVPUSH SCH (09:03)
[2022-10-13] MEDS: Folic Acid 1 MG/0.2 ML UD Syringe IV SCH (09:03)
[2022-10-13] MEDS: Rifaximin 550 MG Tab PO SCH ×2 (09:04→21:49)
[2022-10-13] MEDS ORDERED: Potassium Chloride 20 MEQ in Premix Bag 2 BAG IV ONE (10:01)
[2022-10-13] MEDS ORDERED: Potassium Chloride 20 MEQ Tab.ER PO ONE (10:02)
[2022-10-13] MEDS: Potassium Chloride 20 MEQ in Premix Bag 1 BAG IV SCH ×3 (10:40→23:37)
[2022-10-13 12:47] LABS: CARBON DIOXIDE,CO2 19.4 mmol/L (21.0-32.0); POTASSIUM,K 3.2 mmol/L (3.5-5.1)
[2022-10-13] MEDS ORDERED: Sodium Chloride 0.9% 250 ML IV ONE (23:30)
[2022-10-14] MEDS: Potassium Chloride 20 MEQ in Premix Bag 1 BAG IV SCH ×2 (01:45→03:48)
[2022-10-14] MEDS ORDERED: Lactulose Soln 10 GM/15 ML 15 ML UD Cup PO SCH (06:00)
[2022-10-14] MEDS: Pantoprazole 40 MG in Sodium Chloride 0.9% 10 ML IVPUSH SCH ×2 (06:12→08:28)
[2022-10-14] MEDS: risperiDONE 1 MG Tab PO SCH ×3 (06:13→22:38)
[2022-10-14] MEDS: Levothyroxine 150 MCG Tab PO SCH ×2 (06:13→08:27)
[2022-10-14 07:15] LABS: CARBON DIOXIDE,CO2 18.9 mmol/L (21.0-32.0); POTASSIUM,K 4.4 mmol/L (3.5-5.1)
[2022-10-14] MEDS: Rifaximin 550 MG Tab PO SCH ×2 (08:28→20:46)
[2022-10-14] MEDS: Cholecalciferol (Vitamin D3) 25 MCG Tab PO SCH (08:29)
[2022-10-14] MEDS: Multivitamin Tab PO SCH (08:29)
[2022-10-14] MEDS: DULoxetine 60 MG Cap PO SCH (08:29)
[2022-10-14] MEDS: Magnesium Oxide 400 MG Tab PO SCH ×2 (08:29→20:45)
[2022-10-14] MEDS: Iron Polysaccharides Complex 150 MG Cap PO SCH ×2 (08:30→20:45)
[2022-10-14] MEDS: Thiamine 200 MG/2 ML MDV IVPUSH SCH (08:31)
[2022-10-14] MEDS: Folic Acid 1 MG/0.2 ML UD Syringe IV SCH (08:34)
[2022-10-14] MEDS: Lactulose Soln 10 GM/15 ML 15 ML UD Cup PO SCH ×3 (12:15→20:44)
[2022-10-15] MEDS: Lactulose Soln 10 GM/15 ML 15 ML UD Cup PO SCH ×4 (00:40→10:27)
[2022-10-15] MEDS: Pantoprazole 40 MG in Sodium Chloride 0.9% 10 ML IVPUSH SCH (06:40)
[2022-10-15] MEDS: risperiDONE 1 MG Tab PO SCH (06:40)
[2022-10-15] MEDS: Levothyroxine 150 MCG Tab PO SCH (06:40)
[2022-10-15] MEDS: Magnesium Oxide 400 MG Tab PO SCH (09:38)
[2022-10-15] MEDS: Thiamine 200 MG/2 ML MDV IVPUSH SCH (09:38)
[2022-10-15] MEDS: Iron Polysaccharides Complex 150 MG Cap PO SCH (09:38)
[2022-10-15] MEDS: Folic Acid 1 MG/0.2 ML UD Syringe IV SCH (09:38)
[2022-10-15] MEDS: Multivitamin Tab PO SCH (09:38)
[2022-10-15] MEDS: DULoxetine 60 MG Cap PO SCH (09:38)
[2022-10-15] MEDS: Cholecalciferol (Vitamin D3) 25 MCG Tab PO SCH (09:38)
[2022-10-15] MEDS: Rifaximin 550 MG Tab PO SCH (10:27)
== END 2022-10-15 12:00 | disposition home or self-care (01) | DRG 441 ==
LOC: MW.ED 14:31 → MW.MS 19:51
PROVIDERS: ADMIT Hospitalist; ATTEND Hospitalist
PROC: 0DH67UZ Insertion of Feeding Device into Stomach, Via Natural or Artificial Opening (ICD-10-PCS; principal; 2022-10-11)
DX: K76.82 Hepatic encephalopathy (principal); E72.20 Disorder of urea cycle metabolism, unspecified; G92.8 Other toxic encephalopathy; E87.0 Hyperosmolality and hypernatremia; Z91.199 Patient's noncompliance with other medical treatment and regimen due to unspecified reason; E87.20 Acidosis, unspecified; F10.139 Alcohol abuse with withdrawal, unspecified; E07.9 Disorder of thyroid, unspecified; K70.30 Alcoholic cirrhosis of liver without ascites; I10 Essential (primary) hypertension; E78.5 Hyperlipidemia, unspecified; D69.6 Thrombocytopenia, unspecified; Z20.822 Contact with and (suspected) exposure to COVID-19; E56.9 Vitamin deficiency, unspecified; E11.9 Type 2 diabetes mellitus without complications; E03.9 Hypothyroidism, unspecified; F32.A Depression, unspecified; F41.9 Anxiety disorder, unspecified; Z93.3 Colostomy status; Z85.038 Personal history of other malignant neoplasm of large intestine; Z91.14 Patient's other noncompliance with medication regimen; Z98.890 Other specified postprocedural states; Z83.3 Family history of diabetes mellitus; Z79.899 Other long term (current) drug therapy; Z79.890 Hormone replacement therapy
CPT/HCPCS: 0241U; 36415; 51701; 51702; 71045; 80048; 80053; 80143; 80179; 80305; 80307; 81001; 82140; 82947; 83605; 83690; 83735; 84100; 84484; 85025; 85027; 85610; 85730; 87040; 93005; 93010; 99284; A9270-GY; C9113; J1630; J2060; J3411; J3480; J3490; J7030; J7042; J7050; J7120